=== PATIENT | female | born 1955 | race Caucasian/White ===

== ENCOUNTER 2020-03-03 08:13 | Emergency (ER) | payer OTHER, MEDICAID, SELFPAY ==
[2020-03-03] VITALS (12 sets, daily range): BP systolic 116–203; BP diastolic 72–114; PULSE 56–79; RESP 12–34; TEMP 36.6; O2SAT 87–100; BMI 20.3
--- NOTE | 2020-03-03 08:18 | ED.ABDPAIN ---
HPI - Abdominal Pain General Chief Complaint: Abdominal Pain Stated Complaint: Abd Pain Time Seen by Provider: 03/03/20 08:18 Source: patient Mode of arrival: EMS Limitations: no limitations History of Present Illness HPI narrative: The patient has a history of heroin abuse, she participates in a local methadone clinic. She received her methadone at the clinic this morning, but EMS was contacted. The patient developed abdominal pain last night, she complains of dry heaves. She denies hematemesis. She has no diarrhea. Abdominal pain is generalized, but more focused in the upper abdomen. She apparently has a history of pancreatitis. She denies alcohol use. She denies recent illness. She has had no URI symptoms, no sore throat, no cough or dyspnea. She has had no fever or chills. She was transferred by EMS, Zofran 8 mg IV was given during transport. Limited medical records were obtained from [facility]. In addition to a history of chronic pancreatitis, she has a history of bipolar 1 disorder, chronic hepatitis-C, PTSD, epilepsy, meningioma, and bilateral retinal detachment. In addition to her scheduled dose of methadone, she used a Vicodin this morning. Related Data Previous Rx's Medication Instructions Recorded ondansetron 4 mg PO Q4H PRN #14 tab 03/03/20 Allergies Allergy/AdvReac Type Severity Reaction Status Date / Time No Known Drug Allergies Allergy Verified 03/03/20 09:37 Review of Systems Constitutional Constitutional: Reports body ache(s), Denies chills, Denies fever(s) and Denies headache(s) Eyes Comments: No eye complaints ENT Ears, Nose, Mouth, and Throat: Denies headache(s), Denies neck pain and Denies sore throat Cardiovascular Cardiovascular: Denies chest pain, Denies rapid heart rate, Denies edema and Denies dyspnea Respiratory Respiratory: Denies cough, Denies dyspnea and Denies wheezing Gastrointestinal Gastrointestinal: Reports as per HPI Genitourinary Genitourinary: Denies dysuria Genitourinary: Denies dysuria Musculoskeletal Musculoskeletal: Denies back pain and Denies neck pain Integumentary/Breasts Skin/Breast: Denies pruritus, Denies erythema and Denies rash Neurologic Neurologic: Denies confusion and Denies headache(s) Psychiatric Psychiatric: Denies confusion Hematologic/Lymphatic Hematologic/Lymphatic: Denies easy bruising Allergic/Immunologic Allergic/Immunologic: Denies wheezing Patient History Medical History (Updated 03/03/20 @ 12:[address] MD) Bipolar 1 disorder (Acute) Chronic hepatitis (Acute) Epilepsy (Acute) Heroin abuse (Acute) History of retinal detachment (Acute) Meningioma (Acute) Methadone maintenance therapy patient (Acute) Pancreatitis (Acute) PTSD (post-traumatic stress disorder) (Acute) Surgical History (Updated 03/03/20 @ 09:[address] MD) H/O colonoscopy (Acute) History of bilateral tubal ligation (Acute) Social History Smoking Status: Current every day smoker Smoking Status: Current every day smoker alcohol intake frequency: 0-2 drinks per day Substance Use Type: heroin Exam Initial Vital Signs Initial Vital Signs: Vital Signs Temperature 97.8 F 03/03/20 08:14 Pulse Rate 56 L 03/03/20 08:14 Respiratory Rate 12 03/03/20 08:14 Blood Pressure 177/92 H 03/03/20 08:14 Pulse Oximetry 87 L 03/03/20 08:14 Const General: cooperative and disheveled Nutritional Appearance: thin Other: She is somnolent but arousable and answers questions, she gives minimal history. She indicates she did receive methadone this morning. She gave no additional clinical information. HENMT Mouth: oral mucosae normal Throat: posterior oropharynx normal Eyes Conjunctivae: conjunctivae normal Sclera: sclerae normal Pupils: PERRL EOM: EOM intact bilaterally Neck Neck: No JVD Thyroid: thyroid normal Chest Chest: normal inspection of the chest Resp Effort & Inspection: normal respiratory effort and able to speak in complete sentences Auscultation: clear to auscultation bilaterally, no rales, no rhonchi and no wheezes Cardio Rate: regular rate Rhythm: regular rhythm Heart Sounds: S1 normal, S2 normal, no click, no gallops, no murmurs and no rubs Pulses: normal peripheral pulses GI Other: Generalized tenderness. Tenderness is most focused in the epigastric a period epigastric guarding. No distension. Normal bowel sounds. No masses. Back/Spine/Pelvis Back: No CVA tenderness Skin General: no rashes or lesions noted, No jaundice and No petechiae Neuro General: patient alert, patient oriented x3, gait normal and no focal motor deficits Speech: speech normal Extrem General: full ROM, no pedal edema and no calf tenderness Psych Mental Status: mental status grossly normal Speech and Movement: speech and movement normal Course Course Course Narrative: The patient is feeling much better after the medications received. Her workup was relatively benign, evaluation is consistent with chronic pancreatitis. She already has analgesics is available. Anti emetics seem to have benefitted her significantly. She will be discharged home with Zofran in addition to her current medications. Orders Ordered: Discontinued Medications Diphenhydramine HCl (Benadryl) 50 mg IV NOW ONE Stop: 03/03/20 09:34 Last Admin: 03/03/20 09:38 Dose: 50 mg Documented by: SHA Sodium Chloride (Normal Saline 0.9%) 1,000 mls @ 250 mls/hr IV CONT ALESIA Last Infusion: 03/03/20 12:48 Dose: 0 mls/hr Documented by: Admin: 03/03/20 08:39 Dose: 250 mls/hr Documented by: ROD Ketorolac Tromethamine (Toradol) 30 mg IV NOW ONE Stop: 03/03/20 11:13 Last Admin: 03/03/20 12:41 Dose: 30 mg Documented by: SHA Metoclopramide HCl (Reglan) 10 mg IV NOW ONE Stop: 03/03/20 09:34 Last Admin: 03/03/20 09:38 Dose: 10 mg Documented by: SHA Pantoprazole Sodium (Protonix) 40 mg IV NOW ONE Stop: 03/03/20 08:27 Last Admin: 03/03/20 08:39 Dose: 40 mg Documented by: ROD Vital Signs Vital signs: Vital Signs - 8 hr 03/03/20 08:14 03/03/20 09:00 03/03/20 09:15 Temperature 97.8 F Pulse Rate 56 L 67 71 Respiratory Rate 12 24 29 H Blood Pressure 177/92 H 178/91 H Pulse Oximetry 87 L 100 100 03/03/20 09:30 03/03/20 10:00 03/03/20 10:01 Temperature Pulse Rate 79 74 74 Respiratory Rate 34 H Blood Pressure 203/114 H Pulse Oximetry 99 98 03/03/20 10:30 03/03/20 10:31 03/03/20 11:00 Temperature Pulse Rate 68 69 61 Respiratory Rate 17 17 15 Blood Pressure 127/83 116/72 Pulse Oximetry 95 98 92 08/13/20 11:30 Temperature Pulse Rate 62 Respiratory Rate 15 Blood Pressure 117/72 Pulse Oximetry 94 MDM - Abdominal Pain Lab Data Result diagrams: 03/03/20 08:16 03/03/20 08:16 Labs: Lab Results 03/03/20 03/03/20 03/03/20 Range/Units 08:16 08:16 08:16 WBC 14.8 H (4.5-11.0) X10^3/uL RBC 4.18 (4.0-5.2) X10^6/uL Hgb 13.1 (12.0-16.0) g/dL Hct 39.0 (36-46) % MCV 93.3 (80-100) fL MCH 31.4 (26-34) PG MCHC 33.7 (30-36) % RDW 13.6 (11.6-14.8) % Plt Count 298 (150-400) X10^3/uL Neut % (Auto) 86.8 H (50-75) % Lymph % (Auto) 8.5 L (25-40) % [place] % (Auto) 3.8 (3-14) % Eos % (Auto) 0.5 L (2-4) % Baso % (Auto) 0.4 (0-2) % Neut # (Auto) 41018 H (3664-9563) /uL Lymph # (Auto) 1300 (9377-4463) /uL [place] # (Auto) 600 (0-900) /uL Eos # (Auto) 100 (0-450) /uL Baso # (Auto) 100 (0-100) /uL PT 10.4 (10.1-12.7) SECONDS INR 0.9 (0.9-1.3) APTT 25 L (26.4-36.2) SECONDS Sodium 135 L (137-145) mmol/L Potassium 4.3 (3.4-5.1) mmol/L Chloride 99 (98-107) mmol/L Carbon Dioxide 30 (22-32) mmol/L BUN 12 (7-17) mg/dL Creatinine 0.60 (0.52-1.04) mg/dL Estimated GFR > 60.0 (>60) mL/min BUN/Creatinine Ratio 20.0 (6-22) Glucose 317 H (80-110) mg/dL Calcium 10.0 (8.4-10.2) mg/dL Total Bilirubin 0.5 (0.2-1.3) mg/dL AST 25 (14-36) IU/L ALT 14 (<35) IU/L Alkaline Phosphatase 94 (38-126) U/L Total Protein 7.8 (6.3-8.2) g/dL Albumin 4.4 (3.5-5.0) g/dL Globulin 3.4 (1.7-4.1) g/dL Albumin/Globulin Ratio 1.3 (1.0-2.8) Lipase 71 (23-300) U/L U Opiates 300ng/mL cut (Negative) Ur Oxycodone Screen (Negative) Urine Methadone Screen (Negative) Ur Barbiturates Screen (Negative) U Tricyclic Antidepress (Negative) Ur Phencyclidine Scrn (Negative) Ur Amphetamines Screen (Negative) U Methamphetamines Scrn (Negative) Ur MDMA Scrn (Ecstasy) (Negative) U Benzodiazepines Scrn (Negative) Urine Cocaine Screen (Negative) U Marijuana (THC) Screen (Negative) Ethyl Alcohol ( - 10) mg/dL 03/03/20 03/03/20 Range/Units 08:45 11:12 WBC (4.5-11.0) X10^3/uL RBC (4.0-5.2) X10^6/uL Hgb (12.0-16.0) g/dL Hct (36-46) % MCV (80-100) fL MCH (26-34) PG MCHC (30-36) % RDW (11.6-14.8) % Plt Count (150-400) X10^3/uL Neut % (Auto) (50-75) % Lymph % (Auto) (25-40) % [place] % (Auto) (3-14) % Eos % (Auto) (2-4) % Baso % (Auto) (0-2) % Neut # (Auto) (3479-9737) /uL Lymph # (Auto) (4043-6389) /uL [place] # (Auto) (0-900) /uL Eos # (Auto) (0-450) /uL Baso # (Auto) (0-100) /uL PT (10.1-12.7) SECONDS INR (0.9-1.3) APTT (26.4-36.2) SECONDS Sodium (137-145) mmol/L Potassium (3.4-5.1) mmol/L Chloride (98-107) mmol/L Carbon Dioxide (22-32) mmol/L BUN (7-17) mg/dL Creatinine (0.52-1.04) mg/dL Estimated GFR (>60) mL/min BUN/Creatinine Ratio (6-22) Glucose (80-110) mg/dL Calcium (8.4-10.2) mg/dL Total Bilirubin (0.2-1.3) mg/dL AST (14-36) IU/L ALT (<35) IU/L Alkaline Phosphatase (38-126) U/L Total Protein (6.3-8.2) g/dL Albumin (3.5-5.0) g/dL Globulin (1.7-4.1) g/dL Albumin/Globulin Ratio (1.0-2.8) Lipase (23-300) U/L U Opiates 300ng/mL cut Positive H (Negative) Ur Oxycodone Screen Negative (Negative) Urine Methadone Screen Positive H (Negative) Ur Barbiturates Screen Negative (Negative) U Tricyclic Antidepress Negative (Negative) Ur Phencyclidine Scrn Negative (Negative) Ur Amphetamines Screen Negative (Negative) U Methamphetamines Scrn Negative (Negative) Ur MDMA Scrn (Ecstasy) Negative (Negative) U Benzodiazepines Scrn Negative (Negative) Urine Cocaine Screen Negative (Negative) U Marijuana (THC) Screen Positive H (Negative) Ethyl Alcohol < 10 ( - 10) mg/dL Point of care testing: Urine Dip Bedside Urine Glucose 100 mg/dl Bedside Urine Bilirubin - Negative Bedside Urine Ketone - Negative Urine Specific Tucker 1.010 Bedside Urine Occult Blood - Negative Bedside Urine pH 7.5 Bedside Urine Protein +/- 15 Bedside Urine Urobilinogen - Negative Bedside Urine Nitrite - Negative Bedside Urine Leukocytes - Negative Esterase Imaging Data CT scan - abdomen/pelvis: Radiologist's Impression: 2 [address] Green MD Find Patient Imaging - Jeana Crow 64 F 1955 ACTIVITY DATE EXAM STATUS AUTHOR 03/03/20 08:[address] [id number] [address] Scan Report Signed Patient: Bala Crow#: [id number] : 8Acct:[id number] Age/Sex: 64 / FDate of Service: 03/03/20 Loc: ED Accession Number: [id number] Procedure: CT abdomen pelvis w con Ordering Provider: Lane Green MD PROCEDURE: CT ABDOMEN PELVIS W CON INDICATIONS: Generalized abdominal pain, history of pancreatitis. TECHNIQUE: After the administration of intravenous contrast, 5 mm thick sections acquired from the diaphragm to the symphysis. 5 mm coronal and sagittal reformats were acquired. For radiation dose reduction, the following was used: automated exposure control, adjustment of mA and/or kV according to patient size. COMPARISON: [facility] Ultrasound, US, US ABDOMEN COMPLETE, 03/27/2019, 11:40. [facility], CT, CT ABDOMEN PELVIS WITH CONTRAST, 07/21/2018, 11:22. [facility], CT, CT ABDOMEN PELVIS WITH CONTRAST, 09/27/2019, 16:06. FINDINGS: Image quality: Excellent. ABDOMEN: Lung bases: Lung bases are clear. Heart size is normal. Solid organs: Liver is mildly enlarged measuring 18 cm in length. Gallbladder is unremarkable . Biliary system is non dilated. Punctate calcifications consistent with chronic pancreatitis. Spleen is normal in size and enhancement. No adrenal nodules. Kidneys demonstrate normal size and enhancement, without hydronephrosis. Small cortical nodules in kidneys are most likely cysts. Peritoneum and bowel: Bowel loops demonstrate normal wall thickness and caliber. No free fluid or air. Nodes and vessels: No retroperitoneal or mesenteric adenopathy by size criteria. Aorta and inferior vena cava are normal in size. Miscellaneous: A small fat containing subxiphoid ventral hernia is noted. PELVIS: Genitourinary: Bladder wall thickness is normal. Uterus is normal. No adnexal mass. Prominent gonadal veins in the left pelvis are noted. No free fluid in pelvis. Miscellaneous: No inguinal hernias or adenopathy. Bones: No suspicious bony lesions. No vertebral body compression fractures. There are degenerative changes in the lower thoracic and lumbar spine. Grade 1 anterolisthesis of L4 on L5. IMPRESSION: 1. No acute abnormalities in the abdomen or pelvis. 2. Mild hepatomegaly. 3. Chronic pancreatitis. 4. 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 Dictated by: Sherley Salguero M.D. on 03/03/2020 at 10:04 Approved by: Sherley Salguero M.D. on 03/03/2020 at 10:15 ECG Data Attestation: I personally reviewed and interpreted this ECG as follows: (Sinus Ranjeet with sinus arrhythmia, rate 55 bpm. Normal intervals. No ectopy. No acute ST T wave changes.) Discharge Plan Departure Patient Disposition: Home Clinical Impression: Chronic pancreatitis Qualifiers: Pancreatitis type: unspecified pancreatitis type Qualified Code(s): K86.1 - Other chronic pancreatitis Discharge Date/Time: 03/03/20 12:53 Instructions: DI for Pancreatitis Activity Restrictions/Additional Instructions: Take your current medications as prescribed. Zofran 0DT every 4 hours as needed for nausea. Be sure you are drinking plenty of fluids. Recheck with your doctor in the next 2-3 days, return to the ER as needed. Prescriptions: New ondansetron 4 mg tablet,disintegrating 4 mg PO Q4H PRN (Reason: nausea and vomiting) Qty: 14 RF: 0
[2020-03-03 08:28] LABS: Add Manual Diff / Slide Review NO; Basophils Absolute Auto 100 /uL (0-100); Basophils Percent Auto 0.4 % (0-2); Eosinophils Absolute Auto 100 /uL (0-450); Eosinophils Percent Auto 0.5 % (2-4); Hemoglobin 13.1 g/dL (12.0-16.0); Lymphocytes Absolute Auto 1300 /uL (1100-4500); Lymphocytes Percent Auto 8.5 % (25-40); Mean Corpuscular HGB Conc 33.7 % (30-36); Mean Corpuscular Hemoglobin 31.4 PG (26-34); Mean Corpuscular Volume 93.3 fL (80-100); Monocytes Absolute Auto 600 /uL (0-900); Monocytes Percent Auto 3.8 % (3-14); Neutrophils Absolute Auto 12800 /uL (1500-7000); Neutrophils Percent Auto 86.8 % (50-75); Platelet Count 298 X10^3/uL (150-400); Red Blood Cell Count 4.18 X10^6/uL (4.0-5.2); Red Cell Distribution Width 13.6 % (11.6-14.8); White Blood Cell Count 14.8 X10^3/uL (4.5-11.0)
[2020-03-03 08:30] LABS: INR 0.9 (0.9-1.3); Prothrombin Time 10.4 SECONDS (10.1-12.7)
[2020-03-03 08:32] LABS: PTT Partial Thromboplastin Tim 25 SECONDS (26.4-36.2)
[2020-03-03 08:35] LABS: Alanine Aminotransferase 14 IU/L (<35); Albumin 4.4 g/dL (3.5-5.0); Albumin Globulin Ratio 1.3 (1.0-2.8); Alkaline Phosphatase 94 U/L (38-126); Aspartate Aminotransferase 25 IU/L (14-36); Bilirubin Total 0.5 mg/dL (0.2-1.3); Blood Urea Nitrogen 12 mg/dL (7-17); Carbon Dioxide 30 mmol/L (22-32); Chloride 99 mmol/L (98-107); Estimated Glomerular Filt Rate > 60.0 mL/min (>60); Globulin 3.4 g/dL (1.7-4.1); Glucose 317 mg/dL (80-110); HEMOLYSIS < 15 (0-50); Lipase 71 U/L (23-300); Potassium 4.3 mmol/L (3.4-5.1); Sodium 135 mmol/L (137-145); Total Protein 7.8 g/dL (6.3-8.2)
--- NOTE | 2020-03-03 08:35 | DI.CT.S_ITS ---
PROCEDURE: CT ABDOMEN PELVIS W CON INDICATIONS: Generalized abdominal pain, history of pancreatitis. TECHNIQUE: After the administration of intravenous contrast, 5 mm thick sections acquired from the diaphragm to the symphysis. 5 mm coronal and sagittal reformats were acquired. For radiation dose reduction, the following was used: automated exposure control, adjustment of mA and/or kV according to patient size. COMPARISON: [facility] Ultrasound, US, US ABDOMEN COMPLETE, 03/27/2019, 11:40. [facility], CT, CT ABDOMEN PELVIS WITH CONTRAST, 07/21/2018, 11:22. [facility], CT, CT ABDOMEN PELVIS WITH CONTRAST, 09/27/2019, 16:06. FINDINGS: Image quality: Excellent. ABDOMEN: Lung bases: Lung bases are clear. Heart size is normal. Solid organs: Liver is mildly enlarged measuring 18 cm in length. Gallbladder is unremarkable . Biliary system is non dilated. Punctate calcifications consistent with chronic pancreatitis. Spleen is normal in size and enhancement. No adrenal nodules. Kidneys demonstrate normal size and enhancement, without hydronephrosis. Small cortical nodules in kidneys are most likely cysts. Peritoneum and bowel: Bowel loops demonstrate normal wall thickness and caliber. No free fluid or air. Nodes and vessels: No retroperitoneal or mesenteric adenopathy by size criteria. Aorta and inferior vena cava are normal in size. Miscellaneous: A small fat containing subxiphoid ventral hernia is noted. PELVIS: Genitourinary: Bladder wall thickness is normal. Uterus is normal. No adnexal mass. Prominent gonadal veins in the left pelvis are noted. No free fluid in pelvis. Miscellaneous: No inguinal hernias or adenopathy. Bones: No suspicious bony lesions. No vertebral body compression fractures. There are degenerative changes in the lower thoracic and lumbar spine. Grade 1 anterolisthesis of L4 on L5. IMPRESSION: 1. No acute abnormalities in the abdomen or pelvis. 2. Mild hepatomegaly. 3. Chronic pancreatitis. 4. 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 Dictated by: Sherley Salguero M.D. on 03/03/2020 at 10:04 Approved by: Sherley Salguero M.D. on 03/03/2020 at 10:15
[2020-03-03] MEDS: PANTOPRAZOLE 40 MG VIAL IV (08:39)
[2020-03-03] MEDS: SODIUM CHLORIDE 0.9% 1,000 ML 250 ML IV (08:39)
[2020-03-03 09:00] LABS: Ethanol (ETOH) < 10 mg/dL
--- NOTE | 2020-03-03 09:20 | PC.NURSE ---
Patient requesting morphine states pain 10/10. Repositioned for comfort and provided warm blankets. Provider notified.
[2020-03-03] MEDS: diphenhydrAMINE 50 MG/ML VIAL IV (09:38)
[2020-03-03] MEDS: METOCLOPRAMIDE 10 MG/2 ML INJ IV (09:38)
[2020-03-03 11:42] LABS: UR Morphine/Opiate cutoff 300 Positive (Negative); Ur Creatinine Normal (Normal); Ur Specific Gravity Normal (Normal); Urine Amphetamines Negative (Negative); Urine Barbiturates Negative (Negative); Urine Benzodiazepines Negative (Negative); Urine Cocaine Negative (Negative); Urine MDMA Negative (Negative); Urine Methadone Positive (Negative); Urine Methamphetamines Negative (Negative); Urine Oxycodone Negative (Negative); Urine Phencyclidine Negative (Negative); Urine Tetrahydrocannabinol Positive (Negative); Urine Tricyclic Antidepressant Negative (Negative); Urine pH Normal (Normal)
[2020-03-03] MEDS: KETOROLAC 60 MG/2 ML VIAL 30 MG IV (12:41)
== END 2020-03-03 12:53 | disposition home or self-care (01) ==
PROVIDERS: Emergency Provider Emergency Medicine
DX: K86.1 Other chronic pancreatitis (principal)
CPT/HCPCS: 36415; 74177; 80053; 80305; 80320; 81003; 83690; 85025; 85610; 85730; 93005; 96361; 96374; 96375; 99284; C9113; J1200; J1885; J2765